=== PATIENT | female | born 1940 ===

== ENCOUNTER 2021-08-18 02:49 | Day surgery (SDC) | payer MEDICARE | END 2021-08-18 22:49 | disposition home or self-care (01) | LOC: WOUND 02:49 | DX: T86.821 Skin graft (allograft) (autograft) failure (principal); S01.00XD Unspecified open wound of scalp, subsequent encounter; X58.XXXD Exposure to other specified factors, subsequent encounter; C43.4 Malignant melanoma of scalp and neck; Z88.0 Allergy status to penicillin; Z88.8 Allergy status to other drugs, medicaments and biological substances | CPT/HCPCS: G0463 ==

== ENCOUNTER 2021-09-22 02:57 | Day surgery (SDC) | payer MEDICARE | END 2021-09-22 22:40 | disposition home or self-care (01) | LOC: HBO 02:57 | DX: L59.8 Other specified disorders of the skin and subcutaneous tissue related to radiation (principal); Y84.2 Radiological procedure and radiotherapy as the cause of abnormal reaction of the patient, or of later complication, without mention of misadventure at the time of the procedure; T86.821 Skin graft (allograft) (autograft) failure; Y83.2 Surgical operation with anastomosis, bypass or graft as the cause of abnormal reaction of the patient, or of later complication, without mention of misadventure at the time of the procedure; C43.4 Malignant melanoma of scalp and neck | CPT/HCPCS: G0463 ==

== ENCOUNTER 2021-09-23 05:47 | Day surgery (SDC) | payer MEDICARE | END 2021-09-23 22:39 | disposition home or self-care (01) | LOC: HBO 05:47 | DX: L59.8 Other specified disorders of the skin and subcutaneous tissue related to radiation (principal); T86.821 Skin graft (allograft) (autograft) failure; S01.00XD Unspecified open wound of scalp, subsequent encounter; C43.4 Malignant melanoma of scalp and neck; Y84.2 Radiological procedure and radiotherapy as the cause of abnormal reaction of the patient, or of later complication, without mention of misadventure at the time of the procedure | CPT/HCPCS: G0277 ==

== ENCOUNTER 2021-09-24 00:35 | Day surgery (SDC) | payer MEDICARE | END 2021-09-24 22:50 | disposition home or self-care (01) | LOC: WOUND 00:35 | DX: L59.8 Other specified disorders of the skin and subcutaneous tissue related to radiation (principal); T86.821 Skin graft (allograft) (autograft) failure; S01.00XD Unspecified open wound of scalp, subsequent encounter; C43.4 Malignant melanoma of scalp and neck; Y84.2 Radiological procedure and radiotherapy as the cause of abnormal reaction of the patient, or of later complication, without mention of misadventure at the time of the procedure | CPT/HCPCS: A9270; G0463 ==

== ENCOUNTER 2021-09-24 00:38 | Day surgery (SDC) | payer MEDICARE | END 2021-09-24 22:50 | disposition home or self-care (01) | LOC: HBO 00:38 | DX: L59.8 Other specified disorders of the skin and subcutaneous tissue related to radiation (principal); T86.821 Skin graft (allograft) (autograft) failure; S01.00XA Unspecified open wound of scalp, initial encounter; C43.4 Malignant melanoma of scalp and neck; Y84.2 Radiological procedure and radiotherapy as the cause of abnormal reaction of the patient, or of later complication, without mention of misadventure at the time of the procedure | CPT/HCPCS: G0277 ==

== ENCOUNTER 2021-09-26 03:44 | Day surgery (SDC) | payer MEDICARE | END 2021-09-26 12:00 | disposition home or self-care (01) | LOC: HBO 03:44 | DX: L59.8 Other specified disorders of the skin and subcutaneous tissue related to radiation (principal); T86.821 Skin graft (allograft) (autograft) failure; S01.00XD Unspecified open wound of scalp, subsequent encounter; C43.4 Malignant melanoma of scalp and neck | CPT/HCPCS: G0277 ==

== ENCOUNTER 2021-09-29 03:19 | Day surgery (SDC) | payer MEDICARE | END 2021-09-29 23:29 | disposition home or self-care (01) | LOC: HBO 03:19 | DX: L59.8 Other specified disorders of the skin and subcutaneous tissue related to radiation (principal); C43.4 Malignant melanoma of scalp and neck; T86.821 Skin graft (allograft) (autograft) failure; S01.00XD Unspecified open wound of scalp, subsequent encounter; Y84.2 Radiological procedure and radiotherapy as the cause of abnormal reaction of the patient, or of later complication, without mention of misadventure at the time of the procedure | CPT/HCPCS: G0277 ==

== ENCOUNTER 2021-09-30 04:03 | Day surgery (SDC) | payer MEDICARE | END 2021-09-30 23:16 | disposition home or self-care (01) | LOC: HBO 04:03 | DX: L59.8 Other specified disorders of the skin and subcutaneous tissue related to radiation (principal); T86.821 Skin graft (allograft) (autograft) failure; S01.00XD Unspecified open wound of scalp, subsequent encounter; C43.4 Malignant melanoma of scalp and neck; Y84.2 Radiological procedure and radiotherapy as the cause of abnormal reaction of the patient, or of later complication, without mention of misadventure at the time of the procedure | CPT/HCPCS: G0277 ==

== ENCOUNTER 2021-10-01 01:09 | Day surgery (SDC) | payer MEDICARE | END 2021-10-01 23:05 | disposition home or self-care (01) | LOC: HBO 01:09 | DX: L59.8 Other specified disorders of the skin and subcutaneous tissue related to radiation (principal); T86.821 Skin graft (allograft) (autograft) failure; C43.4 Malignant melanoma of scalp and neck; Y83.2 Surgical operation with anastomosis, bypass or graft as the cause of abnormal reaction of the patient, or of later complication, without mention of misadventure at the time of the procedure; Y84.2 Radiological procedure and radiotherapy as the cause of abnormal reaction of the patient, or of later complication, without mention of misadventure at the time of the procedure | CPT/HCPCS: G0277 ==

== ENCOUNTER 2021-10-01 01:19 | Day surgery (SDC) | payer MEDICARE | END 2021-10-01 23:05 | disposition home or self-care (01) | LOC: WOUND 01:19 | DX: L59.8 Other specified disorders of the skin and subcutaneous tissue related to radiation (principal); T86.821 Skin graft (allograft) (autograft) failure; S01.00XA Unspecified open wound of scalp, initial encounter; C43.4 Malignant melanoma of scalp and neck; Y84.2 Radiological procedure and radiotherapy as the cause of abnormal reaction of the patient, or of later complication, without mention of misadventure at the time of the procedure | CPT/HCPCS: A9270; G0463 ==

== ENCOUNTER 2021-10-02 02:19 | Day surgery (SDC) | payer MEDICARE | END 2021-10-05 03:36 | disposition home or self-care (01) | LOC: HBO 02:19 | DX: L59.8 Other specified disorders of the skin and subcutaneous tissue related to radiation (principal); Y84.2 Radiological procedure and radiotherapy as the cause of abnormal reaction of the patient, or of later complication, without mention of misadventure at the time of the procedure; T86.821 Skin graft (allograft) (autograft) failure; S01.00XD Unspecified open wound of scalp, subsequent encounter; C43.4 Malignant melanoma of scalp and neck | CPT/HCPCS: G0277 ==

== ENCOUNTER 2021-10-06 03:18 | Day surgery (SDC) | payer MEDICARE | END 2021-10-06 23:32 | disposition home or self-care (01) | LOC: WOUND 03:18 | DX: L59.8 Other specified disorders of the skin and subcutaneous tissue related to radiation (principal); T86.821 Skin graft (allograft) (autograft) failure; S01.00XD Unspecified open wound of scalp, subsequent encounter; C43.4 Malignant melanoma of scalp and neck; X58.XXXD Exposure to other specified factors, subsequent encounter; Y84.2 Radiological procedure and radiotherapy as the cause of abnormal reaction of the patient, or of later complication, without mention of misadventure at the time of the procedure | CPT/HCPCS: A9270; G0463 ==

== ENCOUNTER 2021-10-13 03:16 | Day surgery (SDC) | payer MEDICARE | END 2021-10-13 23:25 | disposition home or self-care (01) | LOC: HBO 03:16 | DX: L59.8 Other specified disorders of the skin and subcutaneous tissue related to radiation (principal); Y84.2 Radiological procedure and radiotherapy as the cause of abnormal reaction of the patient, or of later complication, without mention of misadventure at the time of the procedure; T86.821 Skin graft (allograft) (autograft) failure; S01.00XD Unspecified open wound of scalp, subsequent encounter; C43.4 Malignant melanoma of scalp and neck | CPT/HCPCS: G0277 ==

== ENCOUNTER 2021-10-14 05:16 | Day surgery (SDC) | payer MEDICARE | END 2021-10-14 22:51 | disposition home or self-care (01) | LOC: HBO 05:16 | DX: L59.8 Other specified disorders of the skin and subcutaneous tissue related to radiation (principal); Y84.2 Radiological procedure and radiotherapy as the cause of abnormal reaction of the patient, or of later complication, without mention of misadventure at the time of the procedure; T86.821 Skin graft (allograft) (autograft) failure; S01.00XD Unspecified open wound of scalp, subsequent encounter; X58.XXXD Exposure to other specified factors, subsequent encounter; C43.4 Malignant melanoma of scalp and neck | CPT/HCPCS: G0277 ==

== ENCOUNTER 2021-10-15 00:42 | Day surgery (SDC) | payer MEDICARE | END 2021-10-15 23:33 | disposition home or self-care (01) | LOC: HBO 00:42 | DX: L59.8 Other specified disorders of the skin and subcutaneous tissue related to radiation (principal); T86.821 Skin graft (allograft) (autograft) failure; S01.00XD Unspecified open wound of scalp, subsequent encounter; C43.4 Malignant melanoma of scalp and neck; Y84.2 Radiological procedure and radiotherapy as the cause of abnormal reaction of the patient, or of later complication, without mention of misadventure at the time of the procedure | CPT/HCPCS: G0277 ==

== ENCOUNTER 2021-10-16 03:51 | Day surgery (SDC) | payer MEDICARE | END 2021-10-16 22:58 | disposition home or self-care (01) | LOC: HBO 03:51 | DX: L59.8 Other specified disorders of the skin and subcutaneous tissue related to radiation (principal); T86.821 Skin graft (allograft) (autograft) failure; C43.4 Malignant melanoma of scalp and neck; Y83.2 Surgical operation with anastomosis, bypass or graft as the cause of abnormal reaction of the patient, or of later complication, without mention of misadventure at the time of the procedure; Y84.2 Radiological procedure and radiotherapy as the cause of abnormal reaction of the patient, or of later complication, without mention of misadventure at the time of the procedure | CPT/HCPCS: G0277 ==

== ENCOUNTER 2021-10-17 02:05 | Day surgery (SDC) | payer MEDICARE | END 2021-10-17 12:00 | disposition home or self-care (01) | LOC: HBO 02:05 | DX: L59.8 Other specified disorders of the skin and subcutaneous tissue related to radiation (principal); T86.821 Skin graft (allograft) (autograft) failure; S01.00XD Unspecified open wound of scalp, subsequent encounter; C43.4 Malignant melanoma of scalp and neck; Y84.2 Radiological procedure and radiotherapy as the cause of abnormal reaction of the patient, or of later complication, without mention of misadventure at the time of the procedure | CPT/HCPCS: G0277 ==

== ENCOUNTER 2021-10-21 04:10 | Day surgery (SDC) | payer MEDICARE | END 2021-10-21 22:38 | disposition home or self-care (01) | LOC: HBO 04:10 | DX: L59.8 Other specified disorders of the skin and subcutaneous tissue related to radiation (principal); T86.821 Skin graft (allograft) (autograft) failure; C43.4 Malignant melanoma of scalp and neck; S01.00XA Unspecified open wound of scalp, initial encounter; Y84.2 Radiological procedure and radiotherapy as the cause of abnormal reaction of the patient, or of later complication, without mention of misadventure at the time of the procedure; X58.XXXA Exposure to other specified factors, initial encounter | CPT/HCPCS: G0277 ==

== ENCOUNTER 2021-10-21 09:55 | Day surgery (SDC) | payer MEDICARE | END 2021-10-21 22:38 | disposition home or self-care (01) | LOC: WOUND 09:55 | DX: L59.8 Other specified disorders of the skin and subcutaneous tissue related to radiation (principal); T86.821 Skin graft (allograft) (autograft) failure; S01.00XD Unspecified open wound of scalp, subsequent encounter; C43.4 Malignant melanoma of scalp and neck; M06.9 Rheumatoid arthritis, unspecified | CPT/HCPCS: A9270; G0463 ==

== ENCOUNTER 2021-10-22 00:11 | Day surgery (SDC) | payer MEDICARE | END 2021-10-22 23:21 | disposition home or self-care (01) | LOC: HBO 00:11 | DX: L59.8 Other specified disorders of the skin and subcutaneous tissue related to radiation (principal); T86.821 Skin graft (allograft) (autograft) failure; C43.4 Malignant melanoma of scalp and neck; Y84.2 Radiological procedure and radiotherapy as the cause of abnormal reaction of the patient, or of later complication, without mention of misadventure at the time of the procedure; Y83.4 Other reconstructive surgery as the cause of abnormal reaction of the patient, or of later complication, without mention of misadventure at the time of the procedure | CPT/HCPCS: G0277 ==

== ENCOUNTER 2021-10-23 02:08 | Day surgery (SDC) | payer MEDICARE | END 2021-10-23 22:57 | disposition home or self-care (01) | LOC: HBO 02:08 | DX: L59.8 Other specified disorders of the skin and subcutaneous tissue related to radiation (principal); T86.821 Skin graft (allograft) (autograft) failure; S01.00XD Unspecified open wound of scalp, subsequent encounter; C43.4 Malignant melanoma of scalp and neck; Y84.2 Radiological procedure and radiotherapy as the cause of abnormal reaction of the patient, or of later complication, without mention of misadventure at the time of the procedure | CPT/HCPCS: G0277 ==

== ENCOUNTER 2021-10-24 02:59 | Day surgery (SDC) | payer MEDICARE | END 2021-10-24 23:11 | disposition home or self-care (01) | LOC: HBO 02:59 | DX: L59.8 Other specified disorders of the skin and subcutaneous tissue related to radiation (principal); Y84.2 Radiological procedure and radiotherapy as the cause of abnormal reaction of the patient, or of later complication, without mention of misadventure at the time of the procedure; T86.821 Skin graft (allograft) (autograft) failure; Y83.2 Surgical operation with anastomosis, bypass or graft as the cause of abnormal reaction of the patient, or of later complication, without mention of misadventure at the time of the procedure; C43.4 Malignant melanoma of scalp and neck | CPT/HCPCS: G0277 ==

== ENCOUNTER 2021-10-27 01:21 | Day surgery (SDC) | payer MEDICARE | END 2021-10-27 23:28 | disposition home or self-care (01) | LOC: HBO 01:21 | DX: L59.8 Other specified disorders of the skin and subcutaneous tissue related to radiation (principal); T86.821 Skin graft (allograft) (autograft) failure; S01.00XA Unspecified open wound of scalp, initial encounter; C43.4 Malignant melanoma of scalp and neck; Y84.2 Radiological procedure and radiotherapy as the cause of abnormal reaction of the patient, or of later complication, without mention of misadventure at the time of the procedure | CPT/HCPCS: G0277 ==

== ENCOUNTER 2021-10-28 03:59 | Day surgery (SDC) | payer MEDICARE | END 2021-10-28 22:44 | disposition home or self-care (01) | LOC: HBO 03:59 | DX: L59.8 Other specified disorders of the skin and subcutaneous tissue related to radiation (principal); Y84.2 Radiological procedure and radiotherapy as the cause of abnormal reaction of the patient, or of later complication, without mention of misadventure at the time of the procedure; T86.821 Skin graft (allograft) (autograft) failure; S01.00XD Unspecified open wound of scalp, subsequent encounter; C43.4 Malignant melanoma of scalp and neck | CPT/HCPCS: G0277 ==

== ENCOUNTER 2021-10-29 00:22 | Day surgery (SDC) | payer MEDICARE | END 2021-10-29 22:48 | disposition home or self-care (01) | LOC: HBO 00:22 | DX: L59.8 Other specified disorders of the skin and subcutaneous tissue related to radiation (principal); Y84.2 Radiological procedure and radiotherapy as the cause of abnormal reaction of the patient, or of later complication, without mention of misadventure at the time of the procedure; T86.821 Skin graft (allograft) (autograft) failure; S01.00XD Unspecified open wound of scalp, subsequent encounter; C43.4 Malignant melanoma of scalp and neck | CPT/HCPCS: G0277 ==

== ENCOUNTER 2021-10-30 00:07 | Day surgery (SDC) | payer MEDICARE | END 2021-10-30 22:40 | disposition home or self-care (01) | LOC: HBO 00:07 | DX: L59.8 Other specified disorders of the skin and subcutaneous tissue related to radiation (principal); T86.821 Skin graft (allograft) (autograft) failure; S01.00XD Unspecified open wound of scalp, subsequent encounter; X58.XXXD Exposure to other specified factors, subsequent encounter; C43.4 Malignant melanoma of scalp and neck | CPT/HCPCS: G0277 ==

== ENCOUNTER 2021-10-31 07:49 | Day surgery (SDC) | payer MEDICARE | END 2021-10-31 23:57 | disposition home or self-care (01) | LOC: HBO 07:49 | DX: L59.8 Other specified disorders of the skin and subcutaneous tissue related to radiation (principal); Y84.2 Radiological procedure and radiotherapy as the cause of abnormal reaction of the patient, or of later complication, without mention of misadventure at the time of the procedure; T86.821 Skin graft (allograft) (autograft) failure; S01.00XD Unspecified open wound of scalp, subsequent encounter; C43.4 Malignant melanoma of scalp and neck | CPT/HCPCS: G0277 ==

== ENCOUNTER 2021-11-03 02:52 | Day surgery (SDC) | payer MEDICARE | END 2021-11-03 23:33 | disposition home or self-care (01) | LOC: HBO 02:52 | DX: L59.8 Other specified disorders of the skin and subcutaneous tissue related to radiation (principal); Y84.2 Radiological procedure and radiotherapy as the cause of abnormal reaction of the patient, or of later complication, without mention of misadventure at the time of the procedure; T86.821 Skin graft (allograft) (autograft) failure; S01.00XD Unspecified open wound of scalp, subsequent encounter; C43.4 Malignant melanoma of scalp and neck | CPT/HCPCS: G0277 ==

== ENCOUNTER 2021-11-03 03:07 | Day surgery (SDC) | payer MEDICARE | END 2021-11-03 23:33 | disposition home or self-care (01) | LOC: WOUND 03:07 | DX: L59.8 Other specified disorders of the skin and subcutaneous tissue related to radiation (principal); T86.821 Skin graft (allograft) (autograft) failure; S01.00XD Unspecified open wound of scalp, subsequent encounter; C43.4 Malignant melanoma of scalp and neck; M06.9 Rheumatoid arthritis, unspecified; Y84.2 Radiological procedure and radiotherapy as the cause of abnormal reaction of the patient, or of later complication, without mention of misadventure at the time of the procedure | CPT/HCPCS: A9270; G0463 ==

== ENCOUNTER 2021-11-04 00:33 | Day surgery (SDC) | payer MEDICARE | END 2021-11-04 22:57 | disposition home or self-care (01) | LOC: HBO 00:33 | DX: L59.8 Other specified disorders of the skin and subcutaneous tissue related to radiation (principal); T86.821 Skin graft (allograft) (autograft) failure; C43.4 Malignant melanoma of scalp and neck; Y84.2 Radiological procedure and radiotherapy as the cause of abnormal reaction of the patient, or of later complication, without mention of misadventure at the time of the procedure; Y83.2 Surgical operation with anastomosis, bypass or graft as the cause of abnormal reaction of the patient, or of later complication, without mention of misadventure at the time of the procedure | CPT/HCPCS: G0277 ==

== ENCOUNTER 2021-11-05 01:51 | Day surgery (SDC) | payer MEDICARE | END 2021-11-05 23:20 | disposition home or self-care (01) | LOC: HBO 01:51 | DX: L59.8 Other specified disorders of the skin and subcutaneous tissue related to radiation (principal); T86.821 Skin graft (allograft) (autograft) failure; S01.00XA Unspecified open wound of scalp, initial encounter; C43.4 Malignant melanoma of scalp and neck; Y84.2 Radiological procedure and radiotherapy as the cause of abnormal reaction of the patient, or of later complication, without mention of misadventure at the time of the procedure | CPT/HCPCS: G0277 ==

== ENCOUNTER 2021-11-06 00:22 | Day surgery (SDC) | payer MEDICARE | END 2021-11-06 23:35 | disposition home or self-care (01) | LOC: HBO 00:22 | DX: L59.8 Other specified disorders of the skin and subcutaneous tissue related to radiation (principal); T86.821 Skin graft (allograft) (autograft) failure; S01.00XD Unspecified open wound of scalp, subsequent encounter; X58.XXXD Exposure to other specified factors, subsequent encounter | CPT/HCPCS: G0277 ==

== ENCOUNTER 2021-11-07 01:12 | Day surgery (SDC) | payer MEDICARE | END 2021-11-07 22:53 | disposition home or self-care (01) | LOC: HBO 01:12 | DX: L59.8 Other specified disorders of the skin and subcutaneous tissue related to radiation (principal); T86.821 Skin graft (allograft) (autograft) failure; S01.00XD Unspecified open wound of scalp, subsequent encounter; C43.4 Malignant melanoma of scalp and neck; Y84.2 Radiological procedure and radiotherapy as the cause of abnormal reaction of the patient, or of later complication, without mention of misadventure at the time of the procedure | CPT/HCPCS: G0277 ==

== ENCOUNTER 2021-11-10 05:50 | Day surgery (SDC) | payer MEDICARE | END 2021-11-10 23:28 | disposition home or self-care (01) | LOC: HBO 05:50 | DX: L59.8 Other specified disorders of the skin and subcutaneous tissue related to radiation (principal); T86.821 Skin graft (allograft) (autograft) failure; S01.00XD Unspecified open wound of scalp, subsequent encounter; C43.4 Malignant melanoma of scalp and neck; Y84.2 Radiological procedure and radiotherapy as the cause of abnormal reaction of the patient, or of later complication, without mention of misadventure at the time of the procedure | CPT/HCPCS: G0277 ==

== ENCOUNTER 2021-11-11 05:59 | Day surgery (SDC) | payer MEDICARE | END 2021-11-11 23:55 | disposition home or self-care (01) | LOC: HBO 05:59 | DX: L59.8 Other specified disorders of the skin and subcutaneous tissue related to radiation (principal); T86.821 Skin graft (allograft) (autograft) failure; S01.00XD Unspecified open wound of scalp, subsequent encounter; C43.4 Malignant melanoma of scalp and neck; Y84.2 Radiological procedure and radiotherapy as the cause of abnormal reaction of the patient, or of later complication, without mention of misadventure at the time of the procedure | CPT/HCPCS: G0277 ==

== ENCOUNTER 2021-11-12 03:31 | Day surgery (SDC) | payer MEDICARE | END 2021-11-12 23:01 | disposition home or self-care (01) | LOC: HBO 03:31 | DX: L59.8 Other specified disorders of the skin and subcutaneous tissue related to radiation (principal); T86.821 Skin graft (allograft) (autograft) failure; S01.00XD Unspecified open wound of scalp, subsequent encounter; C43.4 Malignant melanoma of scalp and neck; Y84.2 Radiological procedure and radiotherapy as the cause of abnormal reaction of the patient, or of later complication, without mention of misadventure at the time of the procedure | CPT/HCPCS: G0277 ==

== ENCOUNTER 2021-11-13 00:26 | Day surgery (SDC) | payer MEDICARE | END 2021-11-13 23:08 | disposition home or self-care (01) | LOC: HBO 00:26 | DX: L59.8 Other specified disorders of the skin and subcutaneous tissue related to radiation (principal); T86.821 Skin graft (allograft) (autograft) failure; C43.4 Malignant melanoma of scalp and neck; Y83.2 Surgical operation with anastomosis, bypass or graft as the cause of abnormal reaction of the patient, or of later complication, without mention of misadventure at the time of the procedure; Y84.2 Radiological procedure and radiotherapy as the cause of abnormal reaction of the patient, or of later complication, without mention of misadventure at the time of the procedure | CPT/HCPCS: G0277 ==

== ENCOUNTER 2021-11-14 00:36 | Day surgery (SDC) | payer MEDICARE | END 2021-11-14 23:56 | disposition home or self-care (01) | LOC: HBO 00:36 | DX: L59.8 Other specified disorders of the skin and subcutaneous tissue related to radiation (principal); T86.821 Skin graft (allograft) (autograft) failure; S01.00XD Unspecified open wound of scalp, subsequent encounter; C43.4 Malignant melanoma of scalp and neck; Y84.2 Radiological procedure and radiotherapy as the cause of abnormal reaction of the patient, or of later complication, without mention of misadventure at the time of the procedure | CPT/HCPCS: G0277 ==

== ENCOUNTER 2021-11-17 02:21 | Day surgery (SDC) | payer MEDICARE | END 2021-11-17 22:42 | disposition home or self-care (01) | LOC: HBO 02:21 | DX: L59.8 Other specified disorders of the skin and subcutaneous tissue related to radiation (principal); T86.821 Skin graft (allograft) (autograft) failure; S01.00XD Unspecified open wound of scalp, subsequent encounter; C43.4 Malignant melanoma of scalp and neck; Y84.2 Radiological procedure and radiotherapy as the cause of abnormal reaction of the patient, or of later complication, without mention of misadventure at the time of the procedure | CPT/HCPCS: G0277 ==

== ENCOUNTER 2021-11-17 02:26 | Day surgery (SDC) | payer MEDICARE | END 2021-11-17 22:42 | disposition home or self-care (01) | LOC: WOUND 02:26 | DX: L59.8 Other specified disorders of the skin and subcutaneous tissue related to radiation (principal); T86.821 Skin graft (allograft) (autograft) failure; C43.4 Malignant melanoma of scalp and neck; Y83.2 Surgical operation with anastomosis, bypass or graft as the cause of abnormal reaction of the patient, or of later complication, without mention of misadventure at the time of the procedure; Y84.2 Radiological procedure and radiotherapy as the cause of abnormal reaction of the patient, or of later complication, without mention of misadventure at the time of the procedure | CPT/HCPCS: G0463 ==

== ENCOUNTER 2021-11-18 04:58 | Day surgery (SDC) | payer MEDICARE | END 2021-11-18 23:52 | disposition home or self-care (01) | LOC: HBO 04:58 | DX: L59.8 Other specified disorders of the skin and subcutaneous tissue related to radiation (principal); T86.821 Skin graft (allograft) (autograft) failure; S01.00XD Unspecified open wound of scalp, subsequent encounter; C43.4 Malignant melanoma of scalp and neck; Y84.2 Radiological procedure and radiotherapy as the cause of abnormal reaction of the patient, or of later complication, without mention of misadventure at the time of the procedure | CPT/HCPCS: G0277 ==

== ENCOUNTER 2021-11-19 01:05 | Day surgery (SDC) | payer MEDICARE | END 2021-11-19 23:13 | disposition home or self-care (01) | LOC: HBO 01:05 | DX: L59.8 Other specified disorders of the skin and subcutaneous tissue related to radiation (principal); Y84.2 Radiological procedure and radiotherapy as the cause of abnormal reaction of the patient, or of later complication, without mention of misadventure at the time of the procedure; T86.821 Skin graft (allograft) (autograft) failure; S01.00XD Unspecified open wound of scalp, subsequent encounter; C43.4 Malignant melanoma of scalp and neck | CPT/HCPCS: G0277 ==

== ENCOUNTER 2021-11-20 01:19 | Day surgery (SDC) | payer MEDICARE | END 2021-11-20 23:30 | disposition home or self-care (01) | LOC: HBO 01:19 | DX: L59.8 Other specified disorders of the skin and subcutaneous tissue related to radiation (principal); T86.821 Skin graft (allograft) (autograft) failure; S01.00XA Unspecified open wound of scalp, initial encounter; C43.4 Malignant melanoma of scalp and neck; Y84.2 Radiological procedure and radiotherapy as the cause of abnormal reaction of the patient, or of later complication, without mention of misadventure at the time of the procedure | CPT/HCPCS: G0277 ==

== ENCOUNTER 2021-11-21 02:31 | Day surgery (SDC) | payer MEDICARE | END 2021-11-21 23:22 | disposition home or self-care (01) | LOC: HBO 02:31 | DX: L59.8 Other specified disorders of the skin and subcutaneous tissue related to radiation (principal); T86.821 Skin graft (allograft) (autograft) failure; C43.4 Malignant melanoma of scalp and neck; Y84.2 Radiological procedure and radiotherapy as the cause of abnormal reaction of the patient, or of later complication, without mention of misadventure at the time of the procedure; Y83.2 Surgical operation with anastomosis, bypass or graft as the cause of abnormal reaction of the patient, or of later complication, without mention of misadventure at the time of the procedure | CPT/HCPCS: G0277 ==

== ENCOUNTER 2021-11-24 01:20 | Day surgery (SDC) | payer MEDICARE | END 2021-11-24 23:37 | disposition home or self-care (01) | LOC: HBO 01:20 | DX: L59.8 Other specified disorders of the skin and subcutaneous tissue related to radiation (principal); T86.821 Skin graft (allograft) (autograft) failure; S01.00XD Unspecified open wound of scalp, subsequent encounter; C43.4 Malignant melanoma of scalp and neck; Y84.2 Radiological procedure and radiotherapy as the cause of abnormal reaction of the patient, or of later complication, without mention of misadventure at the time of the procedure | CPT/HCPCS: G0277 ==

== ENCOUNTER 2021-11-25 02:17 | Day surgery (SDC) | payer MEDICARE | END 2021-11-25 23:36 | disposition home or self-care (01) | LOC: HBO 02:17 | DX: L59.8 Other specified disorders of the skin and subcutaneous tissue related to radiation (principal); T86.821 Skin graft (allograft) (autograft) failure; S01.00XD Unspecified open wound of scalp, subsequent encounter; C43.4 Malignant melanoma of scalp and neck; Y84.2 Radiological procedure and radiotherapy as the cause of abnormal reaction of the patient, or of later complication, without mention of misadventure at the time of the procedure | CPT/HCPCS: G0277 ==

== ENCOUNTER 2021-12-01 02:07 | Day surgery (SDC) | payer MEDICARE | END 2021-12-01 23:20 | disposition home or self-care (01) | LOC: HBO 02:07 | DX: L59.8 Other specified disorders of the skin and subcutaneous tissue related to radiation (principal); T86.821 Skin graft (allograft) (autograft) failure; S01.00XD Unspecified open wound of scalp, subsequent encounter; C43.4 Malignant melanoma of scalp and neck; Y84.2 Radiological procedure and radiotherapy as the cause of abnormal reaction of the patient, or of later complication, without mention of misadventure at the time of the procedure | CPT/HCPCS: G0277 ==

== ENCOUNTER 2021-12-01 02:13 | Day surgery (SDC) | payer MEDICARE | END 2021-12-01 23:21 | disposition home or self-care (01) | LOC: WOUND 02:13 | DX: L59.8 Other specified disorders of the skin and subcutaneous tissue related to radiation (principal); T86.821 Skin graft (allograft) (autograft) failure; C43.4 Malignant melanoma of scalp and neck; Y84.2 Radiological procedure and radiotherapy as the cause of abnormal reaction of the patient, or of later complication, without mention of misadventure at the time of the procedure; Y83.2 Surgical operation with anastomosis, bypass or graft as the cause of abnormal reaction of the patient, or of later complication, without mention of misadventure at the time of the procedure; M06.9 Rheumatoid arthritis, unspecified | CPT/HCPCS: A9270; G0463 ==

== ENCOUNTER 2021-12-02 02:30 | Day surgery (SDC) | payer MEDICARE | END 2021-12-02 22:57 | disposition home or self-care (01) | LOC: HBO 02:30 | DX: L59.8 Other specified disorders of the skin and subcutaneous tissue related to radiation (principal); T86.821 Skin graft (allograft) (autograft) failure; C43.4 Malignant melanoma of scalp and neck; Y84.2 Radiological procedure and radiotherapy as the cause of abnormal reaction of the patient, or of later complication, without mention of misadventure at the time of the procedure; Y83.2 Surgical operation with anastomosis, bypass or graft as the cause of abnormal reaction of the patient, or of later complication, without mention of misadventure at the time of the procedure | CPT/HCPCS: G0277 ==

== ENCOUNTER 2021-12-03 00:29 | Day surgery (SDC) | payer MEDICARE | END 2021-12-03 23:01 | disposition home or self-care (01) | LOC: HBO 00:29 | DX: L59.8 Other specified disorders of the skin and subcutaneous tissue related to radiation (principal); T86.821 Skin graft (allograft) (autograft) failure; C43.4 Malignant melanoma of scalp and neck; Y84.2 Radiological procedure and radiotherapy as the cause of abnormal reaction of the patient, or of later complication, without mention of misadventure at the time of the procedure; Y83.2 Surgical operation with anastomosis, bypass or graft as the cause of abnormal reaction of the patient, or of later complication, without mention of misadventure at the time of the procedure | CPT/HCPCS: G0277 ==

== ENCOUNTER 2021-12-04 03:34 | Day surgery (SDC) | payer MEDICARE | END 2021-12-04 23:34 | disposition home or self-care (01) | LOC: HBO 03:34 | DX: L59.8 Other specified disorders of the skin and subcutaneous tissue related to radiation (principal); T86.821 Skin graft (allograft) (autograft) failure; S01.00XD Unspecified open wound of scalp, subsequent encounter; C43.4 Malignant melanoma of scalp and neck; Y84.2 Radiological procedure and radiotherapy as the cause of abnormal reaction of the patient, or of later complication, without mention of misadventure at the time of the procedure | CPT/HCPCS: G0277 ==

== ENCOUNTER 2021-12-05 09:52 | Day surgery (SDC) | payer MEDICARE | END 2021-12-05 23:31 | disposition home or self-care (01) | LOC: HBO 09:52 | DX: L59.8 Other specified disorders of the skin and subcutaneous tissue related to radiation (principal); T86.821 Skin graft (allograft) (autograft) failure; C43.4 Malignant melanoma of scalp and neck; Y84.2 Radiological procedure and radiotherapy as the cause of abnormal reaction of the patient, or of later complication, without mention of misadventure at the time of the procedure; Y83.2 Surgical operation with anastomosis, bypass or graft as the cause of abnormal reaction of the patient, or of later complication, without mention of misadventure at the time of the procedure | CPT/HCPCS: G0277 ==

== ENCOUNTER 2021-12-08 00:47 | Day surgery (SDC) | payer MEDICARE | END 2021-12-08 23:37 | disposition home or self-care (01) | LOC: HBO 00:47 | DX: L59.8 Other specified disorders of the skin and subcutaneous tissue related to radiation (principal); T86.821 Skin graft (allograft) (autograft) failure; C43.4 Malignant melanoma of scalp and neck; S01.00XA Unspecified open wound of scalp, initial encounter; Y84.2 Radiological procedure and radiotherapy as the cause of abnormal reaction of the patient, or of later complication, without mention of misadventure at the time of the procedure | CPT/HCPCS: G0277 ==

== ENCOUNTER 2021-12-09 08:00 | Day surgery (SDC) | payer MEDICARE | END 2021-12-09 23:59 | disposition home or self-care (01) | LOC: HBO 08:00 | DX: L59.8 Other specified disorders of the skin and subcutaneous tissue related to radiation (principal); T86.821 Skin graft (allograft) (autograft) failure; S01.00XA Unspecified open wound of scalp, initial encounter; C43.4 Malignant melanoma of scalp and neck; Y84.2 Radiological procedure and radiotherapy as the cause of abnormal reaction of the patient, or of later complication, without mention of misadventure at the time of the procedure | CPT/HCPCS: G0277 ==

== ENCOUNTER 2021-12-10 01:32 | Day surgery (SDC) | payer MEDICARE | END 2021-12-10 23:20 | disposition home or self-care (01) | LOC: HBO 01:32 | DX: L59.8 Other specified disorders of the skin and subcutaneous tissue related to radiation (principal); T86.821 Skin graft (allograft) (autograft) failure; S01.00XD Unspecified open wound of scalp, subsequent encounter; C43.4 Malignant melanoma of scalp and neck; Y84.2 Radiological procedure and radiotherapy as the cause of abnormal reaction of the patient, or of later complication, without mention of misadventure at the time of the procedure | CPT/HCPCS: G0277 ==

== ENCOUNTER 2021-12-11 01:00 | Day surgery (SDC) | payer MEDICARE | END 2021-12-11 22:55 | disposition home or self-care (01) | LOC: HBO 01:00 | DX: L59.8 Other specified disorders of the skin and subcutaneous tissue related to radiation (principal); Y84.2 Radiological procedure and radiotherapy as the cause of abnormal reaction of the patient, or of later complication, without mention of misadventure at the time of the procedure; T86.821 Skin graft (allograft) (autograft) failure; C43.4 Malignant melanoma of scalp and neck; S01.00XA Unspecified open wound of scalp, initial encounter | CPT/HCPCS: G0277 ==

== ENCOUNTER 2021-12-12 00:25 | Day surgery (SDC) | payer MEDICARE | END 2021-12-12 23:14 | disposition home or self-care (01) | LOC: HBO 00:25 | DX: L59.8 Other specified disorders of the skin and subcutaneous tissue related to radiation (principal); T86.821 Skin graft (allograft) (autograft) failure; S01.00XD Unspecified open wound of scalp, subsequent encounter; C43.4 Malignant melanoma of scalp and neck; Y84.2 Radiological procedure and radiotherapy as the cause of abnormal reaction of the patient, or of later complication, without mention of misadventure at the time of the procedure | CPT/HCPCS: G0277 ==

== ENCOUNTER 2021-12-15 03:06 | Day surgery (SDC) | payer MEDICARE | END 2021-12-15 23:01 | disposition home or self-care (01) | LOC: HBO 03:06 | DX: L59.8 Other specified disorders of the skin and subcutaneous tissue related to radiation (principal); T86.821 Skin graft (allograft) (autograft) failure; S01.00XD Unspecified open wound of scalp, subsequent encounter; C43.4 Malignant melanoma of scalp and neck; Y84.2 Radiological procedure and radiotherapy as the cause of abnormal reaction of the patient, or of later complication, without mention of misadventure at the time of the procedure | CPT/HCPCS: G0277 ==

== ENCOUNTER 2021-12-15 08:00 | Day surgery (SDC) | payer MEDICARE | END 2021-12-15 23:59 | disposition home or self-care (01) | LOC: WOUND 08:00 | DX: L59.8 Other specified disorders of the skin and subcutaneous tissue related to radiation (principal); T86.821 Skin graft (allograft) (autograft) failure; S01.00XD Unspecified open wound of scalp, subsequent encounter; C43.4 Malignant melanoma of scalp and neck; Y84.2 Radiological procedure and radiotherapy as the cause of abnormal reaction of the patient, or of later complication, without mention of misadventure at the time of the procedure | CPT/HCPCS: G0463 ==

== ENCOUNTER 2021-12-16 02:08 | Day surgery (SDC) | payer MEDICARE | END 2021-12-16 22:57 | disposition home or self-care (01) | LOC: HBO 02:08 | DX: L59.8 Other specified disorders of the skin and subcutaneous tissue related to radiation (principal); T86.821 Skin graft (allograft) (autograft) failure; S01.00XD Unspecified open wound of scalp, subsequent encounter; C43.4 Malignant melanoma of scalp and neck; Y84.2 Radiological procedure and radiotherapy as the cause of abnormal reaction of the patient, or of later complication, without mention of misadventure at the time of the procedure | CPT/HCPCS: G0277 ==

== ENCOUNTER 2021-12-17 01:38 | Day surgery (SDC) | payer MEDICARE | END 2021-12-17 23:09 | disposition home or self-care (01) | LOC: HBO 01:38 | DX: L59.8 Other specified disorders of the skin and subcutaneous tissue related to radiation (principal); T86.821 Skin graft (allograft) (autograft) failure; S01.00XA Unspecified open wound of scalp, initial encounter; C43.4 Malignant melanoma of scalp and neck; Y84.2 Radiological procedure and radiotherapy as the cause of abnormal reaction of the patient, or of later complication, without mention of misadventure at the time of the procedure | CPT/HCPCS: G0277 ==

== ENCOUNTER 2021-12-18 01:09 | Day surgery (SDC) | payer MEDICARE | END 2021-12-18 22:45 | disposition home or self-care (01) | LOC: HBO 01:09 | DX: L59.8 Other specified disorders of the skin and subcutaneous tissue related to radiation (principal); T86.821 Skin graft (allograft) (autograft) failure; S01.00XD Unspecified open wound of scalp, subsequent encounter; X58.XXXD Exposure to other specified factors, subsequent encounter; C43.4 Malignant melanoma of scalp and neck | CPT/HCPCS: G0277 ==

== ENCOUNTER 2021-12-19 02:40 | Day surgery (SDC) | payer MEDICARE | END 2021-12-19 23:20 | disposition home or self-care (01) | LOC: HBO 02:40 | DX: L59.8 Other specified disorders of the skin and subcutaneous tissue related to radiation (principal); T86.821 Skin graft (allograft) (autograft) failure; S01.00XD Unspecified open wound of scalp, subsequent encounter; C43.4 Malignant melanoma of scalp and neck; Y84.2 Radiological procedure and radiotherapy as the cause of abnormal reaction of the patient, or of later complication, without mention of misadventure at the time of the procedure | CPT/HCPCS: G0277 ==

== ENCOUNTER 2021-12-22 01:49 | Day surgery (SDC) | payer MEDICARE | END 2021-12-22 22:48 | disposition home or self-care (01) | LOC: HBO 01:49 | DX: L59.8 Other specified disorders of the skin and subcutaneous tissue related to radiation (principal); Y84.2 Radiological procedure and radiotherapy as the cause of abnormal reaction of the patient, or of later complication, without mention of misadventure at the time of the procedure; T86.821 Skin graft (allograft) (autograft) failure; S01.00XD Unspecified open wound of scalp, subsequent encounter; C43.4 Malignant melanoma of scalp and neck | CPT/HCPCS: G0277 ==

== ENCOUNTER 2021-12-23 02:05 | Day surgery (SDC) | payer MEDICARE | END 2021-12-23 23:28 | disposition home or self-care (01) | LOC: HBO 02:05 | DX: L59.8 Other specified disorders of the skin and subcutaneous tissue related to radiation (principal); T86.821 Skin graft (allograft) (autograft) failure; S01.00XD Unspecified open wound of scalp, subsequent encounter; C43.4 Malignant melanoma of scalp and neck; Y84.2 Radiological procedure and radiotherapy as the cause of abnormal reaction of the patient, or of later complication, without mention of misadventure at the time of the procedure | CPT/HCPCS: G0277 ==

== ENCOUNTER 2021-12-24 03:06 | Day surgery (SDC) | payer MEDICARE | END 2021-12-24 23:04 | disposition home or self-care (01) | LOC: HBO 03:06 | DX: L59.8 Other specified disorders of the skin and subcutaneous tissue related to radiation (principal); T86.821 Skin graft (allograft) (autograft) failure; S01.00XD Unspecified open wound of scalp, subsequent encounter; C43.4 Malignant melanoma of scalp and neck; Y84.2 Radiological procedure and radiotherapy as the cause of abnormal reaction of the patient, or of later complication, without mention of misadventure at the time of the procedure | CPT/HCPCS: G0277 ==

== ENCOUNTER 2021-12-25 01:34 | Day surgery (SDC) | payer MEDICARE | END 2021-12-25 23:39 | disposition home or self-care (01) | LOC: HBO 01:34 | DX: L59.8 Other specified disorders of the skin and subcutaneous tissue related to radiation (principal); T86.821 Skin graft (allograft) (autograft) failure; S01.00XD Unspecified open wound of scalp, subsequent encounter; C43.4 Malignant melanoma of scalp and neck; Y84.2 Radiological procedure and radiotherapy as the cause of abnormal reaction of the patient, or of later complication, without mention of misadventure at the time of the procedure | CPT/HCPCS: G0277 ==

== ENCOUNTER 2021-12-26 00:59 | Day surgery (SDC) | payer MEDICARE | END 2021-12-26 23:00 | disposition home or self-care (01) | LOC: HBO 00:59 | DX: L59.8 Other specified disorders of the skin and subcutaneous tissue related to radiation (principal); T86.821 Skin graft (allograft) (autograft) failure; S01.00XD Unspecified open wound of scalp, subsequent encounter; C43.4 Malignant melanoma of scalp and neck; Y84.2 Radiological procedure and radiotherapy as the cause of abnormal reaction of the patient, or of later complication, without mention of misadventure at the time of the procedure | CPT/HCPCS: G0277 ==

== ENCOUNTER 2021-12-26 09:35 | Day surgery (SDC) | payer MEDICARE | END 2021-12-26 23:00 | disposition home or self-care (01) | LOC: WOUND 09:35 | DX: L59.8 Other specified disorders of the skin and subcutaneous tissue related to radiation (principal); C43.4 Malignant melanoma of scalp and neck; S01.00XD Unspecified open wound of scalp, subsequent encounter; T86.821 Skin graft (allograft) (autograft) failure; Y84.2 Radiological procedure and radiotherapy as the cause of abnormal reaction of the patient, or of later complication, without mention of misadventure at the time of the procedure | CPT/HCPCS: G0463 ==

== ENCOUNTER 2021-12-29 01:11 | Day surgery (SDC) | payer MEDICARE | END 2021-12-29 23:06 | disposition home or self-care (01) | LOC: HBO 01:11 | DX: L59.8 Other specified disorders of the skin and subcutaneous tissue related to radiation (principal); T86.821 Skin graft (allograft) (autograft) failure; S01.00XD Unspecified open wound of scalp, subsequent encounter; C43.4 Malignant melanoma of scalp and neck; Y84.2 Radiological procedure and radiotherapy as the cause of abnormal reaction of the patient, or of later complication, without mention of misadventure at the time of the procedure | CPT/HCPCS: G0277 ==

== ENCOUNTER 2021-12-29 01:12 | Day surgery (SDC) | payer MEDICARE | END 2021-12-29 23:06 | disposition home or self-care (01) | LOC: WOUND 01:12 | DX: L59.8 Other specified disorders of the skin and subcutaneous tissue related to radiation (principal); T86.821 Skin graft (allograft) (autograft) failure; C43.4 Malignant melanoma of scalp and neck; S01.00XD Unspecified open wound of scalp, subsequent encounter; Y84.2 Radiological procedure and radiotherapy as the cause of abnormal reaction of the patient, or of later complication, without mention of misadventure at the time of the procedure | CPT/HCPCS: A9270; G0463 ==

== ENCOUNTER 2022-01-12 01:01 | Day surgery (SDC) | payer MEDICARE | END 2022-01-12 23:25 | disposition home or self-care (01) | LOC: WOUND 01:01 | DX: L59.8 Other specified disorders of the skin and subcutaneous tissue related to radiation (principal); T86.821 Skin graft (allograft) (autograft) failure; S01.00XD Unspecified open wound of scalp, subsequent encounter; C43.4 Malignant melanoma of scalp and neck | CPT/HCPCS: G0463 ==